=== PATIENT | female | born 1955 | race Caucasian/White ===

== ENCOUNTER 2018-01-15 12:25 | Inpatient (IN) | payer BC ==
[2018-01-06 09:12] VITALS: BMI 29.9
[~2018-01-15 12:25] MED LIST: BACITRACIN 50,000 UNIT, POLYMYXIN B 500,000 UNIT in SODIUM CHLORIDE 0.9% IRRIGATIO 1,00... IRRIGATION ONE; DEXAMETHASONE SOD PHOSPHATE 10 MG/ML 1 ML VIAL IV ONE; HYDROmorphone 0.5 MG/0.5 ML SYRINGE IVP PRN; MORPHINE SULFATE 4 MG/ML SYRINGE IV PRN; ONDANSETRON 4 MG/2 ML VIAL IVP PRN; ceFAZolin IN SWFI 2 GM/20 ML SYRINGE IVP ONE
[2018-01-15] MEDS: LACTATED RINGERS 1,000 ML IV SCH ×2 (15:04→16:43)
[2018-01-15] MEDS: ONDANSETRON 4 MG/2 ML VIAL IVP ONE ×2 (15:11→20:26)
[2018-01-15] MEDS ORDERED: PROPOFOL 10 MG/ML 20 ML VIAL IV ONE (16:45)
[2018-01-15] MEDS ORDERED: fentaNYL (PF) 50 MCG/ML 2 ML AMP ONE (16:45)
[2018-01-15] MEDS ORDERED: MIDAZOLAM 2 MG/2 ML VIAL ONE (16:45)
[2018-01-15] MEDS ORDERED: PHENYLEPHRINE-0.9% NACL SYG 1 MG/10 ML SYRINGE ONE (16:45)
[2018-01-15] MEDS ORDERED: SUCCINYLCHOLINE CHLORIDE 100 MG/5 ML SYR IV ONE (16:45)
[2018-01-15] MEDS ORDERED: LIDOCAINE 1% INJ 10MG/ML (20 ML MDV) ONE (16:45)
[2018-01-15] MEDS ORDERED: THROMBIN (BOVINE) 5,000 UNIT VIAL TOPICAL ONE (17:22)
[2018-01-15] MEDS ORDERED: LIDOCAINE 0.5%-EPI 1:200,000 50 ML VIAL SQ ONE (17:22)
[2018-01-15] MEDS ORDERED: GELATIN SPONGE,ABSORB (LARGE) 1 EACH SPONGE TOPICAL ONE (17:23)
[2018-01-15] MEDS ORDERED: methylPREDNISolone ACETATE 80 MG/ML 1 ML VIAL MISCELLANE ONE (17:34)
[2018-01-15] MEDS ORDERED: LACTATED RINGERS 1,000 ML IV ONE (17:46)
[2018-01-15] MEDS ORDERED: DIAZEPAM 5 MG TAB PO PRN (17:53)
[2018-01-15] MEDS ORDERED: BENZOCAINE/MENTHOL LOZENG 1 EACH LOZENGE MUCOUS MEM PRN (17:53)
[2018-01-15] MEDS ORDERED: HYDROcodone/APAP 5-325MG 1 EACH TAB PO PRN ×2 (17:53)
[2018-01-15] MEDS ORDERED: HYDROmorphone 0.5 MG/0.5 ML SYRINGE IVP PRN ×2 (17:53)
[2018-01-15] MEDS ORDERED: ONDANSETRON 4 MG/2 ML VIAL IVP PRN (17:53)
[2018-01-15] MEDS ORDERED: ACETAMINOPHEN TAB 500 MG TAB PO PRN (17:54)
[2018-01-15] MEDS ORDERED: NAPROXEN SODIUM 440 MG PO PRN (17:54)
--- NOTE | 2018-01-15 17:59 | P.OP ---
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 Valle Taper Operator: Eduard GIBSON who is present throughout the entire the case persistence during positioning, dissection, exposure, visualization, and all crucial elements of the case as well as closure. Anesthesia: General anesthesia Estimated blood loss: Less than 20 mL Complications: None apparent Components implanted: None Specimen: Epidural mass likely facet cyst from L4 5 sent to pathology in formalin Disposition: To recovery room in good stable condition. OPERATIVE INDICATIONS The patient has been having issues in their lower back and lower extremities. She was found to have a facet cyst or epidural mass at L4 5 causing significant foraminal stenosis which correlated well with her low back and lower extremity radiculopathy. She is having worsening symptoms at her lower extremity which was impeding her ability to do regular functions at work. The patient has been through conservative treatment. She is not having any benefit despite conservative treatment We discussed various treatment options including surgery , and the patient wishes to proceed with surgery We discussed the risk, patient' s alternatives and benefits of surgery including but not limited to, risk of bleeding risk of infection, risk of need for further surgery, risk of decreased , loss of motion, loss of function, nerve damage, paralysis, heart attack, blindness and . OPERATIVE SUMMARY After discussing all the risks, patient alternatives and benefits at length, the patient elected to proceed with surgical intervention, signed informed consent, and presented for their procedure. The patient was seen and examined in the preoperative holding area and the surgical site was marked. The patient was given antibiotics and brought to the operating room. The patient was sedated and intubated by anesthesia in standard fashion. The patient was positioned on to the operating room table in a prone position on the appropriate frame which was well-padded and well molded. We were careful to pad any bony prominences and pressure points. We were careful to maintain the patient's cervical spine and good neutral alignment and position throughout. The patient was prepped and draped in a normal standard fashion. An appropriate timeout and keystone protocol performed. We were able to proceed with the surgery. Fluoroscopy was utilized to establish the appropriate level. The local wound area was infiltrated with local anesthetic. An incision was made at the midline longitudinally over the appropriate levels at L4 5. Dissection was taken down subcutaneously to the level of the fascia which was split midline. Dissection was taken over the lamina. Intraoperative fluoroscopy was taken which showed a marker at the appropriate level at L4 5. With the appropriate level positively confirmed, we were able to proceed with laminectomy. The wound was copiously irrigated and suctioned dry as had been done periodically throughout the case. I performed a laminectomy with a combination of curettes and a high-speed bur and Kerrison rongeurs. A small medial facetectomy was performed again further access. A partial foraminotomy was also performed. Portions of the ligamentum flavum were taken down to expose the dura and traversing nerve root. There was evidence of a cystic structure at the epidural space at L4 5 which really well with the MRI. Appear to be facet cyst grossly. This was somewhat invasive and adherent to the dura and that traversing nerve root. I was able to mobilize the capsule and excised the capsule as well as the contents of capsule of the epidural mass which was likely a facet cyst. The capsule and the cyst were sent to pathology. I was able to mobilize the traversing nerve root and gain access to the disc space. There was no evidence of significant disc herniation or extruded disc fragments. There is no further cysts noted. There is good decompression noted. There is no evidence of dural tear or leak. Good hemostasis maintained. The wound was copiously irrigated and suctioned dry. Good decompression and excision of the mass was noted. We were able to proceed with closure. The fascia was closed for a watertight closure. The subcuticular tissue was closed with absorbable suture. The wound was cleaned and dried and dressed with the appropriate dressing. The drapes were broken down. The patient was gently rolled back onto their hospital bed being careful to maintain their cervical spine and good neutral alignment and position. They were woken up by anesthesia, extubated, and brought to the recovery room in good stable condition. The patient will be admitted to the hospital for observation and for appropriate postoperative care, medical management and monitoring. We will continue to follow them closely about the postoperative course.
[2018-01-15] MEDS ORDERED: KETOROLAC 30 MG/ML 1 ML VIAL IVP SCH (18:00)
[2018-01-15] MEDS ORDERED: SODIUM CHLORIDE 0.9% 1,000 ML IV SCH (18:00)
[2018-01-15 19:22] VITALS: PULSE 71; RESP 16; TEMP 97.4
--- NOTE | 2018-01-15 20:23 | XR ---
Fluoroscopy INDICATION: Pain FINDINGS: Fluoroscopy time: 3 seconds. Images obtained: 1. IMPRESSIONS: 1. Documentation of fluoroscopy.
[2018-01-15] MEDS ORDERED: METHOCARBAMOL 500 MG TAB PO SCH (21:00)
[2018-01-15 23:40] VITALS: BP 161/86
[2018-01-16] MEDS ORDERED: ceFAZolin IN SWFI 2 GM/20 ML SYRINGE IVP SCH (01:00)
[2018-01-16] MEDS ORDERED: LISINOPRIL-HCTZ 20-12.5 MG 1 EACH TAB PO SCH (09:00)
[2018-01-16] MEDS ORDERED: LORATADINE 10 MG TAB PO SCH (09:00)
[2018-01-16] MEDS ORDERED: SENNOSIDES-DOCUSATE SODIUM 1 EACH TAB PO SCH (09:00)
[2018-01-16] MEDS ORDERED: ASPIRIN 81 MG PO SCH (09:00)
== END 2018-01-15 21:06 | disposition home or self-care (01) | DRG 519 ==
LOC: 2ORMAIN 13:19 → 5MS5E 18:30
PROVIDERS: ADMIT Orthopaedic Surgery Orthopaedic Surgery of the Spine; ATTEND Orthopaedic Surgery Orthopaedic Surgery of the Spine
PROC: 00NY0ZZ Release Lumbar Spinal Cord, Open Approach (ICD-10-PCS; principal; 2018-01-15 15:20)
PROC: 00BY0ZZ Excision of Lumbar Spinal Cord, Open Approach (ICD-10-PCS; principal; 2018-01-15 15:20)
DX: M48.061 Spinal stenosis, lumbar region without neurogenic claudication (principal); D68.51 Activated protein C resistance; M54.16 Radiculopathy, lumbar region; Z79.899 Other long term (current) drug therapy; Z79.82 Long term (current) use of aspirin; I10 Essential (primary) hypertension; Z88.8 Allergy status to other drugs, medicaments and biological substances; Z83.3 Family history of diabetes mellitus; M43.16 Spondylolisthesis, lumbar region; G96.19 Other disorders of meninges, not elsewhere classified
CPT/HCPCS: 36415; 72020; 86850; 86900; 86901; 88304